=== PATIENT | female | born 1945 | race Caucasian/White ===

== ENCOUNTER → 2017-01-17 | Outpatient (CLI) | payer OTHER, MEDICARE | LOC: FIMAGING 14:57 | PROVIDERS: ATTEND Internal Medicine | DX: Z12.31 Encounter for screening mammogram for malignant neoplasm of breast (principal) | CPT/HCPCS: G0202 ==

== ENCOUNTER → 2017-02-14 | Outpatient (CLI) | payer OTHER, MEDICARE | LOC: BHFA 13:00 | PROVIDERS: ATTEND Internal Medicine Interventional Cardiology | DX: I49.3 Ventricular premature depolarization (principal); E78.5 Hyperlipidemia, unspecified; I10 Essential (primary) hypertension; I25.10 Atherosclerotic heart disease of native coronary artery without angina pectoris ==

== ENCOUNTER → 2017-04-23 | Outpatient (CLI) | payer OTHER, MEDICARE | LOC: FIMAGING 14:45 | PROVIDERS: ATTEND Internal Medicine | DX: J40 Bronchitis, not specified as acute or chronic (principal) ==

== ENCOUNTER → 2017-07-25 | Outpatient (CLI) | payer OTHER, MEDICARE | LOC: FIMAGING 14:55 | DX: N28.1 Cyst of kidney, acquired (principal) ==

== ENCOUNTER → 2017-12-15 | Outpatient (CLI) | payer OTHER, MEDICARE ==
[~2017-12-15] MED LIST: GADOBUTROL 10 ML VIAL IVP ONE
== END ==
LOC: FIMAGING 06:39
PROVIDERS: ATTEND Internal Medicine
DX: Z09 Encounter for follow-up examination after completed treatment for conditions other than malignant neoplasm (principal); E23.7 Disorder of pituitary gland, unspecified
CPT/HCPCS: 70553; A9585; 82565-PO

== ENCOUNTER → 2018-01-26 | Outpatient (CLI) | payer OTHER, MEDICARE | LOC: FIMAGING 13:43 | PROVIDERS: ATTEND Internal Medicine | DX: Z12.31 Encounter for screening mammogram for malignant neoplasm of breast (principal) ==

== ENCOUNTER 2018-10-11 19:48 | Emergency (ER) | payer OTHER, MEDICARE ==
--- NOTE | 2018-10-11 20:06 | EDPHY ---
HPI/HX/ROS/PE/MDM Narrative: CHIEF COMPLAINT: Hypertensive HISTORY OF PRESENT ILLNESS: The patient is a 73 y/o female with a history of hypertension, arrhythmia, and coronary artery disease complaining of hypertension and lightheadedness. She is working with Dr. Overton, cardiology, to find a regimen to keep her blood pressure in the normal range. She travelled to [facility], returning 3 weeks ago, and was not closely following her blood pressure during the time that she was away, however, she felt well during that time. Since returning she has been taking her blood pressure twice per day and averages systolic pressure 115-140s and diastolic under 85. This morning, she had a blood pressure within her normal range but felt lightheaded. The lightheadedness resolved around noon. This afternoon she took her blood pressure and was hypertensive to 180s/90s. She denies chest pain, palpitations, fainting, or any other associated symptoms. She reports an increase in ocular migraines over the past few months but no other changes in medical conditions. She denies changes in caffeine or water intake today. She had 1 shamar last night. She denies history of DVTs or PEs. No fever, chills, chest pain, shortness of breath, palpitations, vomiting, diarrhea, urinary complaints, headache. REVIEW OF SYSTEMS: A comprehensive 10 system review of systems is otherwise negative aside from elements mentioned in the history of present illness and medical decision making. PAST MEDICAL HISTORY: Hypertension, arrhythmia, coronary artery disease, acromegaly SOCIAL HISTORY: at bedside, recently returned from [facility], lives in [place] VITAL SIGNS: Reviewed by me GENERAL: Well-developed, well-nourished, resting comfortably in no respiratory distress. Mild enlargement of facial features consistent with acromegaly HEENT: Atraumatic. Eyes: No icterus, no injection. Mouth: moist mucous membranes. No erythema or lesions. Neck: supple with no adenopathy. LUNGS: Clear to auscultation bilaterally, no wheezes, rhonchi or rales. CARDIAC: Regular rate and rhythm, no rubs, murmurs or gallops. ABDOMEN: Soft, nontender, nondistended, bowel sounds normal. BACK: No CVA tenderness. EXTREMITIES: No trauma. No edema. Range of motion is normal throughout. NEURO: Alert and oriented, grossly nonfocal. SKIN: Warm and dry, no rash. PSYCHIATRIC: Normal mentation, no agitation. ED Course: The patient presents with lightheadedness this morning resolving around noon, and hypertension, onset this afternoon. She denies any other associated symptoms. Plan for CBC, basic chemistry, troponin, and EKG. I reviewed the patient's recorded blood pressure measurements. As mentioned, her blood pressure has been well controlled with the exception of today when she had several readings which were significantly elevated. She is asymptomatic at this time. Blood pressure on arrival is 191/77 21:00 - EKG and labs have been negative for acute abnormalities. I feel this patient is safe to be discharged with follow up with Dr. Overton regarding her blood pressure management. The patient agrees to this course of action. MDM: Differential diagnoses for the patient's symptom complex was considered including but not limited to essential hypertension, pain, anxiety, hypertensive urgency, hypertensive emergency, medication noncompliance. - Data Points Laboratory Results: Laboratory Results 10/11/18 20:20 10/11/18 20:20 Medications Given: Discontinued Medications Sodium Chloride (Ns) 500 mls @ 1,000 mls/hr IV EDNOW ONE PRN Reason: Protocol Stop: 10/11/18 21:01 Last Admin: 10/11/18 20:39 Dose: 500 mls Point of Care Test Results: Chemistry 10/11/18 20:28 POC Troponin I 0.01 ng/mL ng/mL (0.00-0.08) General Time Seen by Provider: 10/11/18 19:59 Initial Vital Signs: Initial Vital Signs Temperature (C) 36.7 C 10/11/18 19:54 Heart Rate 68 10/11/18 19:54 Respiratory Rate 18 10/11/18 19:54 Blood Pressure 191/77 H 10/11/18 19:54 O2 Sat (%) 97 10/11/18 19:54 O2 Delivery Mode Room Air Allergies/Adverse Reactions: SANTIAGO Inhibitors [Santiago Inhibitors] Allergy (Severe, Verified 10/11/18 19:52) EYELIDS SWELLING candesartan cilexetil [From [place]and] Allergy (Severe, Verified 10/11/18 19:52) EYELIDS SWELLING HAYFEVER Allergy (Mild, Uncoded 10/11/18 19:52) NASAL CONGESTION Home Medications: Medication Instructions Recorded Salima 09/25/13 Amlodipine 03/15/14 Aspirin 09/25/13 Atenolol 09/25/13 Cabergoline 09/25/13 Lipitor 09/25/13 Departure - Departure Disposition: Home, Routine, Self-Care Clinical Impression: Hypertension Qualifiers: Hypertension type: essential hypertension Qualified Code(s): I10 - Essential ( primary) hypertension Condition: Good Instructions: Hypertension (ED) Additional Instructions: Please follow up with Dr. Overton tomorrow. Please stay well-hydrated, drink plenty of fluids, and avoid excessive caffeine. If you develop recurrent lightheadedness or dizziness, have a fainting episode, developed chest pain, palpitations, severe headache, or other concerns, please return to the emergency department or seek care urgently. Referrals: Joe Campbell MD [Primary Care Provider] - As per Instructions Jesse Overton MD [Medical Doctor] - As per Instructions Report Scribed for: Oriana Deleon Report Scribed by: Bee Barron Date of Report: 10/11/18 Time of Report: 20:33 Physician Review and Approval Statement: Portions of this note were transcribed by a medical observer. I personally performed a history, physical exam, medical decision making, and confirmed accuracy of information the transcribed note.
[2018-10-11 20:28] LABS: PLATELET COUNT 144 10^3/uL (150-400)
[2018-10-11] MEDS ORDERED: NS 500 ML IV ONE (20:32)
[2018-10-11 20:42] VITALS: BP 177/82
--- NOTE | 2018-10-17 12:48 | CPEKG ---
Test Reason : OPEN Blood Pressure : / mmHG Vent. Rate : 061 BPM Atrial Rate : 059 BPM P-R Int : 167 ms QRS Dur : 086 ms QT Int : 430 ms P-R-T Axes : 056 002 051 degrees QTc Int : 433 ms Sinus rhythm Probable left atrial enlargement Confirmed by Oriana Deleon ([id number]) on 10/17/2018 12:48:18 PM Referred By: Oriana Deleon Confirmed By:Oriana Deleon
== END 2018-10-11 21:19 | disposition home or self-care (01) ==
DX: I10 Essential (primary) hypertension (principal); I25.10 Atherosclerotic heart disease of native coronary artery without angina pectoris; E86.9 Volume depletion, unspecified
CPT/HCPCS: 84484-ER

== ENCOUNTER → 2018-12-10 | Outpatient (CLI) | payer OTHER, MEDICARE | LOC: BHFA 10:00 | PROVIDERS: ATTEND Internal Medicine Interventional Cardiology | DX: I49.3 Ventricular premature depolarization (principal) ==